=== PATIENT | female | born 1950 | race Caucasian/White ===

== ENCOUNTER 2020-03-22 07:38 | Outpatient (CLI) | payer BC, SELFPAY ==
--- NOTE | ~2020-03-22 | MR_ITS ---
EXAMINATION: MR cervical spine wo con DATE: 03/22/2020 08:54 INDICATION: Neck pain. TECHNIQUE: Magnetic resonance imaging (MRI) of the cervical spine was performed without intravenous c ontrast. Sequences included sagittal T2-weighted FSE, sagittal STIR FSE, sagittal T1-weighted FSE, ax ial MERGE, and axial T2-weighted FSE. COMPARISON: None FINDINGS: There is kyphosis of cervical spine. There is 7 degrees dextrocurvature of cervical spine. Vertebral body heights are normal. There is mildly decreased disc height at C4-C5 and moderately decr eased disc height at C5-C6 and C6-C7. The spinal cord signal intensity is normal. There are nodules i n the right thyroid lobe measuring up to 8 mm, likely not clinically significant.. The following disc levels are specifically discussed: C2-C3: The disc does not extend beyond the endplate margin. There is no uncovertebral joint osteoarth ritis. There is moderate right and severe left facet joint osteoarthritis. There is mild left neural foraminal stenosis. There is no central canal stenosis. C3-C4: The disc is bulging. There is mild bilateral uncovertebral joint osteoarthritis. There is mode rate right and moderate severe left facet joint osteoarthritis. There is mild bilateral neural forami nal stenosis. There is mild central canal stenosis with ventral indentation of the spinal cord. C4-C5: The disc does not extend beyond the endplate margin. There is mild left uncovertebral joint os teoarthritis. There is severe bilateral facet joint osteoarthritis. There is mild bilateral neural fo raminal stenosis. There is mild central canal stenosis with ventral indentation of the spinal cord. C5-C6: The disc is bulging. There is severe bilateral uncovertebral joint osteoarthritis. There is mi ld right and moderate left facet joint osteoarthritis. There is mild bilateral neural foraminal steno sis. There is mild central canal stenosis with ventral indentation of the spinal cord. C6-C7: The disc is bulging. There is severe bilateral uncovertebral joint osteoarthritis. There is mi ld bilateral facet joint osteoarthritis. There is moderate bilateral neural foraminal stenosis. There is mild central canal stenosis. C7-T1: The disc does not extend beyond the endplate margin. There is no uncovertebral joint osteoarth ritis. There is mild right and severe left facet joint osteoarthritis. There is mild left neural fora piper stenosis. There is no central canal stenosis. IMPRESSION: 1. Moderate cervical spondylosis. Reviewed, dictated and finalized at location A.
== END 2020-03-22 07:39 | disposition home or self-care (01) ==
PROVIDERS: PCP Internal Medicine; Referring Provider Specialist; Visit Provider Nurse Practitioner
DX: M47.892 Other spondylosis, cervical region (principal)
CPT/HCPCS: 72141

== ENCOUNTER 2020-11-06 11:40 | Outpatient (CLI) | payer BC, SELFPAY ==
--- NOTE | ~2020-11-06 | XR_ITS ---
EXAMINATION: XR knee RT 3V DATE: 11/06/2020 12:10 INDICATION: Right knee pain. TECHNIQUE: 3 views of right knee were obtained. COMPARISON: None. FINDINGS: Bone alignment is normal. No fracture. There is mild osteoarthritis of medial and patellofe moral compartments characterized by tiny marginal osteophytes. No knee joint effusion. IMPRESSION: 1. Mild right knee osteoarthritis. Reviewed, dictated and finalized at location A.
== END 2020-11-06 11:41 | disposition home or self-care (01) ==
PROVIDERS: PCP Internal Medicine; Visit Provider Internal Medicine
DX: M17.11 Unilateral primary osteoarthritis, right knee (principal)
CPT/HCPCS: 73562

== ENCOUNTER 2021-06-05 07:40 | Outpatient (CLI) | payer BC, SELFPAY ==
[2021-06-05 09:35] LABS: Alanine Aminotransferase 23 U/L (4-35); Albumin Level 4.2 g/dL (3.5-5.1); Alkaline Phosphatase 97 U/L (38-126); Anion Gap 8 mmol/L (8-16); Aspartate Amino Transferase 29 U/L (14-36); Bilirubin,Total 0.7 mg/dL (0.2-1.3); Blood Urea Nitrogen 18 mg/dL (7-17); Calcium 9.3 mg/dL (8.4-10.2); Carbon Dioxide 28 mmol/L (22-30); Chloride 105 mmol/L (98-107); Cholesterol 167 mg/dL (0-200); Estimated Glomerular Filt Rate > 60; Glucose 94 mg/dL (65-110); HDL Direct 79 mg/dL; Potassium 4.1 mmol/L (3.4-5.0); Sodium 141 mmol/L (137-145); Triglycerides 88 mg/dL (<150)
[2021-06-05 09:46] LABS: LDL Cholesterol Direct 65 mg/dL
== END 2021-06-05 07:41 | disposition home or self-care (01) ==
PROVIDERS: PCP Internal Medicine; Referring Provider Specialist; Visit Provider Internal Medicine
DX: I10 Essential (primary) hypertension (principal); Z51.81 Encounter for therapeutic drug level monitoring; E78.5 Hyperlipidemia, unspecified
CPT/HCPCS: 36415; 80053; 80061